=== PATIENT | male | born 1945 | race Caucasian/White ===

== ENCOUNTER 2025-02-07 10:11 | Outpatient (CLI) | payer MEDICARE, SELFPAY ==
--- OUTSIDE RECORDS SUMMARY | 2025-02-07 10:14 | XMS_ITS | Encounter Summary ---
Author Organization [facility] Address [address] [facility] [place] [address] Phone Care Team Providers Care Product Safety Technician Name Role Phone Ze Bolanos MD Primary Care Provider [phone] Jordan Michael MD Unavailable [phone] [place] APRN, ASSISTANT PRODUCER Primary Care Provider Reason for Visit * Reason Comments Medication Refill Encounter Details Date Type Department Care Team (Late st Contact Info) Description 04/20/2021 [facility] [address] [place] [address] Jordan Michael MD [address] [place] [address] Medication Refill Social History Tobacco Use Types Packs/Day Years Used Date Smoking Tobacco: Never Smokeless Tobacco: Former Chew Comments:Patient states he h as chewed tobacco for most of his life. Alcohol Use Standard Drinks/Week Comments Yes 0 (1 standard drink = 0.6 oz pur e alcohol) Daily Sex and Gender Information Value Date Recorded Sex Assigned at Not on file Legal Sex Male 10:25 PM CDT Gender Identity Not on file Sexual Orientation Not on file COVID-19 Exposure Response Date Recorded In the last month, have you been in contact with someone who was confirmed or suspected to have Coronavirus / COVID-19? No / Unsure 04/22/2021 8:04 AM CDT documented as of this encounter Miscellaneous Notes * Telephone Encounter - Deana Malik, RN - 04/22/2021 3:08 PM CDT R/f hydroxyurea. Next follow up 04/2021 documented in this encounter Plan of Treatment Upcoming Encounters Date Type Department Care Team (Late st Contact Info) Description 07/26/2025 10:40 AM FRONT OFFICE DEVELOPER Office Visit [facility] Oncology Services [address] [place] [id number] Jordan Michael MD [address] [place] [address] documented as of this encounter Visit Diagnoses Not on filedocumented in this encounter Care Teams Product Safety Technician Relationship Specialty Start Date End Date Ze Bolanos MD [address] [place] [address] PCP - General Internal Medicine 02/12/17 01/12/25 [employer] [place], BUSINESS MANAGEMENT ANALYST, ASSISTANT PRODUCER 2 [facility] [address] [place] [address] PCP - General Advanced Practice Nurse 01/13/25 Jordan Michael MD [address] [place], [place] [id number] Consulting Physician Medical Oncology 02/11/23 documented as of this encounter
--- OUTSIDE RECORDS SUMMARY | 2025-02-07 10:14 | XMS_ITS | Referral Summary ---
Author Organization [address] Address [address] [place] [id number] Care Team Providers Care Lap Checker Name Role Phone Ze Bolanos MD Primary Care Provider [phone] Allergies Active Allergy Reactions Criticality Noted Date Comments Penicillins Unknown 08/20/2020 Medications aspirin 81 mg enteric coated tablet Take 81 mg by mouth daily Active atorvastatin (LIPITOR) 40 mg tablet Take 40 mg by mouth daily Active fenofibrate (TRIGLIDE) 160 mg tablet 06/22/2020 Active opct5-vlk-vze-fi sh oil-L.casei 120 mg-400 mg -4 billion cell capsule Take by mouth Active hydroxyurea (HYDREA) 500 mg capsule Take by mouth daily Active losartan (COZAAR) 50 mg tablet Take 50 mg by mouth daily Active amLODIPine (NORVASC) 2.5 mg tablet Take 1 tablet (2.5 mg total) by mouth daily 30 tablet 08/03/2023 Active Active Problems Problem Noted Date Diagnosed Date Family history of colon cancer in mother 020 Overview (2020): Added automatically from request for surgery [id number] Personal history of colonic polyps 2020 Overview (2020): Added automatically from request for surgery [id number] Encounter for screening colonoscopy 2020 Overview (2020): Added automatically from request for surgery [id number] Social History Tobacco Use Types Packs/Day Years Used Date Smoking Tobacco: Some Days Cigarettes Smokeless Tobacco: Never Tobacco Cessation:Ready to Q uit: Not Asked; Counseling Given: Not Answered Alcohol Use Standard Drinks/Week Comments Yes 0 (1 standard drink = 0.6 oz pur e alcohol) AUDIT-C Answer Date Recorded Q1: How often do you have a drink containing alcohol? 4 or more times a week 08/03/2023 Q2: How many drinks containi ng alcohol do you have on a typical day when you are drinking? 3 or 4 Q3: How often do you have si x or more drinks on one occasion? Daily or almost daily 08/03/2023 Personal Safety Answer Date Recorded Have you ever been in or are you currently in a harmful physical or emotional relationship or is someone making you feel afraid or unsafe? Denies 08/03/2023 Sex and Gender Information Value Date Recorded Sex Assigned at Not on file Legal Sex Male 1:36 AM MACHINE SANDER Gender Identity Not on file Sexual Orientation Not on file Last Filed Vital Signs Vital Sign [place] Time Taken Comments Blood Pressure 137/81 08/03/2023 4:30 PM MACHINE SANDER Pulse 79 08/03/2023 3:45 PM MACHINE SANDER Temperature 36.4 C (97.6 F) 08/03/2023 1:48 PM MACHINE SANDER Respiratory Rate 18 08/03/2023 1:48 PM MACHINE SANDER Oxygen Saturation 98% 08/03/2023 3:45 PM MACHINE SANDER Inhaled Oxygen Concentration - - Weight 107.9 kg (237 lb 12.8 oz) 06/15/2021 2:34 PM MACHINE SANDER Height 179.5 cm (5' 10.67) 06/15/2021 2:[address] Body Mass Index 33.48 06/15/2021 2:34 PM MACHINE SANDER Plan of Treatment Not on file Procedures Procedure Name Priority Date/Time Associated Diagnosis Comments COLONOSCOPY 08/21/2020 8:52 AM MACHINE SANDER from Last 3 Months or Most Recently Relevant to Health Maintenance Results * COLONOSCOPY (08/21/2020 8:52 AM MACHINE SANDER) Anatomical Region Laterality Modality Other Narrative Procedure Note Chicho Celestin MD - 08/21/2020 8:52 AM CST [facility] Patient Name: Nehemias Brown Procedure Date: 08/21/2020 8:52 AM Date of : 1945 Admit Type: Outpatient Age: 75 Gender: Male Attending MD: Chicho Celestin M.D. Room: [facility] ENDOSCOPY ROOM 2 Note Status: Finalized Patient Profile: Refer to note in patient chart for documentation of history and physical. Procedure: Colonoscopy Indications: High risk colon cancer surveillance: Personalhistory of colonic polyps, Family history of colon cancerin a first-degree relative before age 60 years, Last colonoscopy: June 2015 Referring MD: Loren Bolanos M.D. Providers: Chicho Celestin M.D. Impression: - Diverticulosis in the sigmoid colon. - The examination was otherwise normal. - No specimens collected. Recommendation: - Discharge patient to home. - Resume previous diet. - Continue present medications. - Repeat colonoscopy in 5 years for surveillance. - Return to primary care physician as previously scheduled. Medicines: Propofol per Anesthesia Complications: No immediate complications. Estimated Blood Loss: Estimated blood loss: none. Procedure: Pre-Anesthesia Assessment: - This assessment was completed [Time ofAssessment] prior to the administration of sedation. The benefits, risks and alternatives of theprocedure and sedation were discussed and informed consentwas obtained. All questions were answered. Please referto the signed informed consent document in the medical record. Bowel prep was administered using a single dose. The bowel preparation used was Miralax via single dose instruction. The bowel preparation used was bisacodyl tablets [Single vs Split Dose]. The scope was passed under direct vision. TheColonoscope -[id number] was introduced through the anus and advanced to the the cecum, identified by appendiceal orifice and ileocecal valve. The colonoscopy was performed without difficulty. The patient tolerated the procedure well. The qualityof the bowel preparation was good. Findings: The perianal and digital rectal examinations were normal. Multiple small and large-mouthed diverticula were found in thesigmoid colon. The exam was otherwise without abnormality. Electronically signed by Chicho Celestin M.D. Chicho Celestin M.D. 08/21/2020 9:37:36 AM Number of Addenda: 0 Note Initiated On: 08/21/2020 8:52 AM Procedure Code(s): --- Professional --- G0105, Colorectal cancer screening; colonoscopy on individual at high risk Diagnosis Code(s): --- Professional --- K57.30, Diverticulosis of large intestine without perforation orabscess without bleeding Z80.0, Family history of malignant neoplasm of digestive organs Z86.010, Personal history of colonic polyps CPT copyright 2019 [employer]. All rights reserved. The codes documented in this report are preliminary and upon skin care consultant reviewmay be revised to meet current compliance requirements. Recognized by the [employer] for promoting quality in endoscopy us Chicho Celestin MD ENDOSCOPY PROCEDURES Final Re sult from Last 3 Months or Most Recently Relevant to Health Maintenance Insurance [facility] MEDICARE ADVANTAGE AET[employer] MEDICARE Advance Directives For more information, please contact: [phone] * Full Code (Latest Code Status on File) Date Activated Date Inactivated Comments 08/21/2020 8:41 AM 08/21/2020 2:24 PM Care Teams Lap Checker Relationship Specialty Start Date End Date Ze Bolanos MD [address] [place] [address] PCP - General Internal Medicine 08/03/23
--- OUTSIDE RECORDS SUMMARY | 2025-02-07 10:14 | XMS_ITS | Clinical Summary ---
Author Organization [address] Address [address] [place] [id number] Care Team Providers Care Wind Turbine Sheet Metal Worker Name Role Phone Ze Bolanos MD Primary Care Provider [phone] Allergies Active Allergy Reactions Criticality Noted Date Comments Penicillins Unknown 08/20/2020 Medications aspirin 81 mg enteric coated tablet Take 81 mg by mouth daily Active atorvastatin (LIPITOR) 40 mg tablet Take 40 mg by mouth daily Active fenofibrate (TRIGLIDE) 160 mg tablet 06/22/2020 Active lcul1-mwq-nmz-fi sh oil-L.casei 120 mg-400 mg -4 billion [...] (2020): Added automatically from request for surgery [id number] Personal history of colonic polyps 2020 Overview (2020): Added automatically from request for surgery [id number] Encounter for screening colonoscopy 2020 Overview (2020): Added automatically from request for surgery [id number] Surgical History Surgery Date Site/Laterality Comments KNEE ARTHROSCOPY 07/20/2001 - 07/19/2002 Left Arthroscopy knee COLONOSCOPY 06/19/2015 - 07/19/2015 Medical History Medical History Date Comments Hypertension Hypertension Hyperlipidemia Hyperlipidemia Colon polyp Family History Medical History Relation Name Comments Colon cancer Mother Cancer Other Family history of Cancer; Relation Name Status Comments Mother Other Social History Tobacco Use Types Packs/Day Years [...] on file Legal Sex Male 1:36 AM WINDSCREEN FITTER Gender Identity Not on file Sexual Orientation Not on file Obstetrics History Last Filed Vital Signs Vital Sign [place] Time Taken Comments Blood Pressure 137/81 08/03/2023 4:30 PM WINDSCREEN FITTER Pulse 79 08/03/2023 3:45 PM WINDSCREEN FITTER Temperature 36.4 C (97.6 F) 08/03/2023 1:48 PM WINDSCREEN FITTER Respiratory Rate 18 08/03/2023 1:48 PM WINDSCREEN FITTER Oxygen Saturation 98% 08/03/2023 3:45 PM WINDSCREEN FITTER Inhaled Oxygen Concentration - - Weight 107.9 kg (237 lb 12.8 oz) 06/15/2021 2:34 PM WINDSCREEN FITTER Height 179.5 cm (5' 10.67) 06/15/2021 2:[address] Body Mass Index 33.48 06/15/2021 2:34 PM WINDSCREEN FITTER Plan of Treatment Health Maintenance Due Date Last Done Comments Depression Screening 1945 Hepatitis C Screening 1945 Hepatitis B Screening 1964 Zoster Vaccine (1 of 2) 1965 Well Visit 65+ 2011 Pneumococcal vaccine 65+ (2 of 2 - PPSV23) 06/23/2016 04/28/2016 Fall Risk Assessment 08/21/2021 08/21/2020 Covid-19 Vaccine (2023-2 5 season) 2024 11/25/2021, 05/20/2021, 09/27/2020, Additional history exists DTaP/Tdap/Td Vaccine (2 - Td or Tdap) 07/20/2024 07/20/2014 Influenza Vaccine (Season Ended) 2025 04/08/2021, 04/08/2020, 04/03/2020, Additional history exists Colon Cancer Screening-Colonoscopy Discontinued 08/21/2020, 06/28/2015, 06/28/2015, Additional history exists Procedures Procedure Name Priority Date/Time Associated Diagnosis Comments COLONOSCOPY 08/21/2020 8:52 AM WINDSCREEN FITTER from Last 3 Months or Most Recently Relevant to Health Maintenance Results * COLONOSCOPY (08/21/2020 8:52 AM WINDSCREEN FITTER) Anatomical Region Laterality Modality Other Narrative Procedure Note Chicho Celestin MD - 08/21/2020 8:52 AM CST [facility] Patient Name: Nehemias Brown Procedure Date: 08/21/2020 8:52 AM Date of : 1945 Admit Type: Outpatient Age: 75 Gender: Male Attending MD: Chicho Celestin M.D. Room: [facility] ENDOSCOPY ROOM 2 Note Status: Finalized Patient [...] scope was passed under direct vision. TheColonoscope [id number] was introduced through the anus and advanced [...] history of colonic polyps CPT copyright 2019 [employer]. All rights reserved. The codes documented in this report are preliminary and upon youth accommodation support worker reviewmay be revised to meet current compliance requirements. Recognized by the [employer] for promoting quality in endoscopy Chicho Celestin MD ENDOSCOPY PROCEDURES Final Re sult from Last 3 Months or Most Recently Relevant to Health Maintenance Insurance [employer] MEDICARE ADVANTAGE AET[employer] MEDICARE Advance Directives For more information, please contact: [phone] * Full Code (Latest Code Status on File) Date Activated Date Inactivated Comments 08/21/2020 8:41 AM 08/21/2020 2:24 PM Care Teams Wind Turbine Sheet Metal Worker Relationship Specialty Start Date End Date Ze Bolanos MD [address] [place] [address] PCP - General Internal Medicine 08/03/23
--- OUTSIDE RECORDS SUMMARY | 2025-02-07 10:14 | XMS_ITS | Encounter Summary ---
Author Organization [facility] Address [address] [facility] [place] [address] Phone Care Team Providers Care Hydrogenation Still Operator Name Role Phone Ze Bolanos MD Primary Care Provider [phone] Jordan Michael MD Unavailable [phone] [place] APRN, NUT ROASTER Primary Care Provider Reason for Visit * Reason Comments Medication Refill Encounter Details Date Type Department Care Team (Late st Contact Info) Description 10/22[facility] [address] [place] [address] Jordan Michael MD [address] [place] [address] Medication Refill Social History Tobacco [...] on file Sexual Orientation Not on file documented as of this encounter Miscellaneous Notes * Telephone Encounter - Lizbeth Lyn RN - 10/23/2020 2:21 PM CDT Refilled Hydroxyurea next f/u 04/2021 documented in this encounter Plan of Treatment Upcoming Encounters Date Type Department Care Team (Late st Contact Info) Description 07/26/2025 10:40 AM SKEIN WASHER Office Visit [facility] Oncology Services [address] [place] [address] Jordan Michael MD [address] [place] [address] documented as of this encounter Visit Diagnoses Not on filedocumented in this encounter Care Teams Hydrogenation Still Operator Relationship Specialty Start Date End Date Ze Bolanos MD [address] [place], [place] [id number] PCP - General Internal Medicine 02/12/17 01/12/25 Tsering [place], RUG UNDERLAY MACHINE OPERATOR, NUT ROASTER 2 [facility], [address] [address] PCP - General Advanced Practice Nurse 01/13/25 [place] [address] [place] [address] Consulting Physician Medical Oncology 02/11/23 documented as of this encounter"
--- OUTSIDE RECORDS SUMMARY | 2025-02-07 10:14 | XMS_ITS | Clinical Summary ---
Author Organization [facility] Address [address] [place] [address] Phone Care Team Providers Care Agricultural Research Technologist Name Role Phone Jordan Michael MD Unavailable [phone] [place] APRN, PARTNER MANAGEMENT CONSULTANT Primary Care Provider Allergies Active Allergy Reactions Criticality Noted Date Comments Penicillins Hives,Itching 02/16/2017 Medications fish oil-omega-3 fatty acids 1000 MG Capsule Take 1,000 mg by mouth daily. Active aspirin EC 81 MG Tablet Delayed Response Take 81 mg by mouth daily. Active losartan (COZAAR) 50 MG Tablet Active Cyanocobalamin (VITAMIN B-12 PO) Take by mouth daily. Active rosuvastatin (CRESTOR) 20 MG Tablet 2 Active amLODIPine (NORVASC) 5 MG Tablet Take 5 mg by mouth daily. Active hydroxyurea (HYDREA) 500 MG Capsule Take 2 Capsules by mouth daily 180 Capsule 2 5 Active Fenofibrate Micronized 134 MG Capsule Take 134 mg by mouth daily. 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 (Primary Dx); Essential thrombocytosis; Hypertension, essential Discharge Disposition: Discharged to home or Selfcare 01/23/2025 Travel 01/13/2025 Travel 12/13/2024 [facility]phone [facility] [address] [place] [address] Jordan Michael MD from Last 3 Months Family History Medical History Relation Name Comments Aneurysm Father Cancer Father Prostate Cancer Cancer Mother Colon cancer Relation Name Status Comments Father Mother Social History Tobacco Use Types Packs/Day Years Used Date Smoking Tobacco: Never Smokeless Tobacco: Former Chew Tobacco Cessation:Counseling Given: Not Answered Comments:Patient states he has chewed tobacco for most of his life. [...] Sign Reading Time Taken Comments Blood Pressure 121/72 01/23/2025 11:37 AM CDT Pulse 94 01/23/2025 11:37 AM CDT Temperature 36.3 C (97.4 F) 01/23/2025 11:37 AM CDT Respiratory Rate 16 01/23/2025 11:37 AM CDT Oxygen Saturation 99% 01/23/2025 11:37 AM CDT Inhaled Oxygen Concentration - - Weight 107 kg (235 lb 14.4 oz) 01/23/2025 11:37 AM CDT Height 182.9 cm (6') 01/23/2025 11:37 AM CDT Body Mass Index 31.99 01/23/2025 11:37 AM CDT Plan of Treatment Upcoming Encounters Date Type Department Care Team (Late st Contact Info) Description 07/26/2025 10:40 AM ENTRY LEVEL AUTOMOTIVE TECHNICIAN Office Visit [facility] [address] [place] [address] Jordan Michael MD [address] [place] [address] Health Maintenance Due Date Last Done Comments Hepatitis C Virus (HCV) Screening 1945 Pneumococcal Immunization (50+ years) (2 of 2 - PPSV23) 06/23/2016 04/28/2016 SARS-COV-2 Immunization (9 - Moderna risk season) 2024 05/10/2024, 08/25/2023, 10/16/2022, Additional history exists Influenza Immunization (#1) 03/20/202504/20, 04/01/2023, 04/29/2022, Additional history exists DTaP/Tdap/Td Immunization Discontinued 07/20/2014 TdaP Immunization Completed 07/20/2014 Pneumococcal Immunization Combined Discontinued 04/28/2016 Colonoscopy Discontinued 08/21/2020, 02/0 08/2020, 08/20/2020 Colorectal Cancer Screening Discontinued Zoster Immunization Completed 06/17/2022, Respiratory Syncytial Virus (RSV) Immunization (Adult) Completed 04/01/2023 Cologuard Discontinued Hepatitis B Immunization Aged Out No longer eligible based on patient's age to complete this topic Human Papillomavirus (HPV) Immunization Aged Out No longer eligible based on patient's age to complete this topic Immunochemical Fecal Occult Blood Discontinued Meningococcal Immunization (ACWY) Aged Out No longer eligible based on patient's age to complete this topic Rotavirus Immunization Aged Out No lo nger eligible based on patient's age to complete this topic Procedures Procedure Name Priority Date/Time Associated Diagnosis Comments CBC WITH AUTO DIFFERENTIAL Routine 01/13/2025 11:11 AM CDT 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 IRON,TRANSFERN,CALC.T IBC,%SAT Routine 01/13/2025 11:11 AM CDT 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 COMPLETE BLOOD COUNT (CBC) WITH DIFF Routine 01/13/2025 11:11 AM CDT 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 FERRITIN Routine 01/13/2025 11:11 AM CDT 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 CMP (COMPREHENSIVE METABOLIC PANEL) Routine 01/13/2025 11:11 AM CDT 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 from Last 3 Months Results * IRON,TRANSFERN,CALC.TIBC,%SAT (01/13/2025 11:11 AM CDT) Pathologist [facility] IRON 100 31 - 144 mcg/dL 01/13/2025 12:27 PM CDT [facility] TRANSFERRIN 262 163 - 344 mg/dL 01/13/2025 12:27 PM CDT [facility] TIBC, CALCULATED 328 261 - 462 mcg/dL 01/13/2025 12:27 PM CDT [facility] % SATURATION * 30 15 - 62 % 01/13/2025 12:27 PM CDT [facility] Blood Venipuncture / Unknown 01/13/2025 11:11 AM CDT 01/13/2025 12:04 PM CDT Jordan Michael MD CHEMISTRY ORDERABLES Fin al Result [facility] [address] [place] [address] * (ABNORMAL) CBC WITH AUTO DIFFERENTIAL (01/13/2025 11:11 AM CDT) WBC 4.89 4.00 - 12.00 10(3)/mcL 01/13/2025 2:47 PM CDT [facility] RBC 3.64(L) 4.40 - 5.80 10(6)/mcL 01/13/2025 2:47 PM CDT [facility] HEMOGLOBIN (HGB) 13.4 13.0 - 16.5 g/dL 01/13/2025 2:47 PM CDT [facility] HEMATOCRIT (HCT) 39.4 38.0 - 50.0 % 01/13/2025 2:47 PM CDT [facility] MCV 108.2(H) 82.0 - 96.0 fL 01/13/2025 2:47 PM CDT [facility] MCH 36.8(H) 26.0 - 32.0 pg 01/13/2025 2:47 PM CDT [facility] MCHC 34.0 31.0 - 36.0 g/dL 01/13/2025 2:47 PM CDT [facility] PLATELET COUNT 457(H) 140 - 440 10(3)/mcL 01/13/2025 2:47 PM CDT [facility] RDW 15.9(H) 11.8 - 15.5 % 01/13/2025 2:47 PM CDT [facility] MPV 10.2 8.0 - 12.6 fL 01/13/2025 2:47 PM CDT [facility] NEUTROPHILS 70.9(H) 40.0 - 68.0 % 01/13/2025 2:47 PM CDT [facility] LYMPHOCYTES 15.1(L) 19.0 - 49.0 % 01/13/2025 2:47 PM CDT [facility] MONOCYTES 10.2 3.0 - 13.0 % 01/13/2025 2:47 PM CDT [facility] EOSINOPHILS 2.0 0.0 - 8.0 % 01/13/2025 2:47 PM CDT [facility] BASOPHILS 1.2(H) 0.0 - 1.0 % 01/13/2025 2:47 PM CDT [facility] IMMATURE GRANULOCYTE 0.6(H) 0.0 - 0.4 % 01/13/2025 2:47 PM CDT [facility] Comment:Immature Granulocyte s includes Metamyelocytes, Myelocytes, and Promyelocytes. ABSOLUTE NEUTROPHILS 3.46 1.40 - 5.30 10(3)/[facility] 01/13/2025 2:47 PM CDT [facility] ABSOLUTE LYMPHOCYTES 0.74(L) 0.90 - 3.30 10(3)/[facility] 01/13/2025 2:47 PM CDT [facility] ABSOLUTE MONOCYTES 0.50 0.10 - 0.90 10(3)/[facility] 01/13/2025 2:47 PM CDT [facility] ABSOLUTE EOSINOPHIL 0.10 0.00 - 0.50 10(3)/[facility] 01/13/2025 2:47 PM CDT [facility] ABSOLUTE BASOPHILS 0.06 0.00 - 0.10 10(3)/[facility] 01/13/2025 2:47 PM CDT [facility] ABSOLUTE IMMATURE GRANULOCYTE 0.03 0.00 - 0.03 10 (3) [facility]. 01/13/2025 2:47 PM CDT [facility] NRBC PER 100 WBC 0 01/14/20 2:47 PM CDT [facility] RESULTS ARE CONSISTENT WITH PERIPHERAL SMEAR REVIEW Yes 01/13/2025 2:47 PM CDT [facility] RBC MORPHOLOGY CONSISTENT WITH INDICES Yes 01/13/2025 2:47 PM CDT [facility] POLYCHROMASIA 1+ 01/13/2025 2:47 PM CDT [facility] HYPERSEGMENTED NEUTROPHILS 1+ 01/13/2025 2:47 PM CDT [facility] GIANT PLATELETS 1+ 2:47 PM CDT [facility] LARGE PLATELETS 1+ 2:47 PM CDT [facility] Blood Venipuncture / Unknown 01/13/2025 11:11 AM CDT 01/13/2025 12:04 PM CDT Narrative [facility] - 01/13/2025 2:47 PM CDT Anisocytosis Macrocytosis Jordan Michael MD HEMATOLOGY ORDERABLES Fi nal Result [facility] [address] [place] [address] * FERRITIN (01/13/2025 11:11 AM CDT) FERRITIN 254 22 - 274 ng/mL 01/13/2025 12:45 PM CDT [facility] Blood Venipuncture / Unknown 01/13/2025 11:11 AM CDT 01/13/2025 12:04 PM CDT Jordan Michael MD CHEMISTRY ORDERABLES Fin al Result Performing Organization Address [facility]/ZIP Co de Phone Number [facility] [address] [place] [address] * (ABNORMAL) CMP (COMPREHENSIVE METABOLIC PANEL) (01/13/2025 11:11 AM CDT) SODIUM 135(L) 136 - 145 mmol/L 01/13/2025 12:27 PM CDT [facility] POTASSIUM 4.6 3.5 - 5.1 mmol/L 01/13/2025 12:27 PM CDT [facility] CHLORIDE 103 98 - 107 mmol/L 01/13/2025 12:27 PM CDT [facility] CO2, VENOUS 21(L) 22 - 30 mmol/L 01/13/2025 12:27 PM CDT [facility] ANION GAP 15.6 <18.0 mmol/L 01/13/2025 12:27 PM CDT [facility] GLUCOSE 90 70 - 99 mg/dL 01/13/2025 12:27 PM CDT [facility] BUN 19 8 - 26 mg/dL 01/13/2025 12:27 PM CDT [facility] CREATININE, BLOOD 1.32(H) 0.70 - 1.30 mg/dL 01/13/2025 12:27 PM [facility] BUN/CREATININE RATIO 14 12 - 20 ratio 01/13/2025 12:27 PM [facility] TOTAL PROTEIN 7.4 6.0 - 8.0 g/dL 01/13/2025 12:27 PM [facility] ALBUMIN 4.4 3.5 - 5.0 g/dL 01/13/2025 12:27 PM [facility] A/G RATIO 1.5 1.0 - 2.2 01/13/2025 12:27 PM [facility] CALCIUM 9.4 8.7 - 10.5 mg/dL 01/13/2025 12:27 PM [facility] T BILI 0.8 0.2 - 1.2 mg/dL 01/13/2025 12:27 PM [facility] SGOT (AST) 35 <43 U/L 01/13/2025 12:27 PM [facility] SGPT (ALT) 38 <56 U/L 01/13/2025 12:27 PM [facility] ALKALINE PHOSPHATASE 51 40 - 150 U/L 01/13/2025 12:27 PM [facility] IS THE PATIENT REQUIRED TO BE FASTING? No 01/13/2025 12:27 PM [facility] GFR, ESTIMATED 55(L) >=60 01/13/2025 12:27 PM [facility] Comment: Creatinine Clearance is the preferred criteria for selecting drug dose adjustments in renally impaired patients. The GFR is provided as additional pertinent clinical information. GFR is reported in mL/min/1.73 sq m. Calculation based on the Chronic Kidney Disease Epidemiology Collaboration (CKD- EPI) equation refit without adjustment for race. GFR, EST. >60 >=60 025 12:27 PM [facility] GFR, EST. NONAFRICAN 52(L) >=60 01/13/2025 12:27 PM [facility] Blood Venipuncture / Unknown 01/13/2025 11:11 AM CDT 01/13/2025 12:04 PM CDT Jordan Michael MD CHEMISTRY ORDERABLES Fin al Result [facility] [address] [place] [address] from Last 3 Months Insurance MEDICARE C [employer] Care Teams Agricultural Research Technologist Relationship Specialty Start Date End Date [place], [employer], PARTNER MANAGEMENT CONSULTANT [address], [address] [place] [address] PCP - General Advanced Practice Nurse 01/13/25 Jordan Michael MD [address] [place] [address] Consulting Physician Medical Oncology 02/11/23
--- OUTSIDE RECORDS SUMMARY | 2025-02-07 10:14 | XMS_ITS | Encounter Summary ---
Author Organization [facility] Address [address] [facility] [place] [address] Phone Care Team Providers Care Microstrategy Developer Name Role Phone Ze Bolanos MD Primary Care Provider [phone] Jordan Michael MD Unavailable [phone] [place] APRN, CUSTOMS VERIFIER Primary Care Provider Reason for Visit * Reason Comments Medication Refill Encounter Details Date Type Department Care Team (Late st Contact Info) Description [facility]/22/20[facility] [address] [place] [address] Jordan Michael MD [address] [place] [address] Medication Refill Social History Tobacco [...] encounter Miscellaneous Notes * Telephone Encounter - Bette Madera RN - 06/23/2022 12:22 PM CST Approved Hydrea refill per last f/u note with adjusted sig. DYER HELPER * Telephone Encounter - Verito Ruiz RN - 06/23/2022 10:17 AM CST Would you like hydroxyurea refilled? He doesn't follow up with you until August 08 DYER HELPER documented in this encounter Plan of Treatment Upcoming Encounters Date Type Department Care Team (Late st Contact Info) Description 07/26/2025 10:40 AM RUG DYER HELPER Office Visit [facility] [address] [place] [phone] Jordan Michael MD [address] [place] [address] documented as of this encounter Visit Diagnoses Not on filedocumented in this encounter Care Teams Microstrategy Developer Relationship Specialty Start Date End Date Ze Bolanos MD [address] [place] [address] PCP - General Internal Medicine 02/12/17 01/12/25 [place], CERTIFIED TRAVEL COUNSELOR, CUSTOMS VERIFIER [address] [facility], [address] [place] [address] PCP - General Advanced Practice Nurse 01/13/25 Jordan Michael MD [address] [place], [place] [phone] Consulting Physician Medical Oncology 02/11/23 documented as of this encounter
--- OUTSIDE RECORDS SUMMARY | 2025-02-07 10:14 | XMS_ITS | Clinical Summary ---
Author Organization [facility] Address [facility] [facility] [place] [address] Care Team Providers Care Data Support Analyst Name Role Phone Galo Valencia MD Unavailable [phone] Source Comments [facility],non-[facility] Affiliates and Associated Physician Practices is amultiple site organization consisting of ambulatory clinics and hospital sitesin [place], [place], [place] and [place]. This disclosure is being madepursuant to the Care Everywhere program and may not contain all information available regarding this patient. Last updated 18.[facility] [employer] Allergies Active Allergy Reactions Criticality Noted Date Comments Penicillins 12/03/2015 As a child does not know reaction Medications * Be aware that medications may not be up to date on this document. Alwaysverify current medications with the patient. atorvastatin (LIPITOR) 40 MG tablet Take 40 mg by mouth once daily Active folic acid (FOLVITE) 1 MG tablet Take 1 mg by mouth once daily Active fenofibrate (LOFIBRA) 160 MG tablet Take 160 mg by mouth once daily 7 Active valsartan (DIOVAN) 80 MG tablet Take 80 mg by mouth once daily 7 Active clindamycin (CLEOCIN) 300 MG capsule TAKE 2 CAPSULES BY MOUTH 1 TIME 1 HOUR BEFORE DENTAL APPOINTMENT FOR 1 DOSE 6 capsule 8 Active Active Problems Problem Noted Date Diagnosed Date Hamstring tendonitis 08/22/2016 Primary osteoarthritis of right knee 12/03/2015 Hyperlipidemia 01/01/2013 Essential hypertension 01/01/2013 Social History Tobacco Use Types Packs/Day Years Used Date Smoking Tobacco: Never Smokeless Tobacco: Never Alcohol Use Standard Drinks/Week Comments Yes 12 (1 standard drink = 0.6 oz pu re alcohol) occ Sex and Gender Information Value Date Recorded Sex Assigned at Not on file Legal Sex Male 4:34 PM CDT Gender Identity Not on file Sexual Orientation Not on file Last Filed Vital Signs Vital Sign Reading Time Taken Comments Blood Pressure 122/69 07/02/2017 8:17 AM COMPUTER ENGINEERING PROFESSOR Pulse 95 07/02/2017 8:17 AM COMPUTER ENGINEERING PROFESSOR Temperature 36.5 C (97.7 F) 07/02/2017 8:17 AM COMPUTER ENGINEERING PROFESSOR Respiratory Rate 18 07/02/2017 8:17 AM COMPUTER ENGINEERING PROFESSOR Oxygen Saturation 96% 07/02/2017 8:17 AM COMPUTER ENGINEERING PROFESSOR Inhaled Oxygen Concentration - - Weight 101.4 kg (223 lb 8 oz) 06/30/2017 7:23 AM COMPUTER ENGINEERING PROFESSOR Height 182.9 cm (6') 06/30/2017 7:23 AM COMPUTER ENGINEERING PROFESSOR Body Mass Index 30.31 06/30/2017 7:23 AM COMPUTER ENGINEERING PROFESSOR Plan of Treatment Health Maintenance Due Date Last Done Comments HEPATITIS C SCREENING 07/12/1963 DTAP/TDAP/TD VACCINES (1 - Tdap) 1965 PNEUMOCOCCAL VACCINE 50+ (1 of 1 - PCV) 1996 ZOSTER VACCINE (1 of 2) 1996 SCREENING FOR DIABETES 02/06/2017 Respiratory Syncytial Virus (RSV) Vaccine Pt: or over 60 yrs (1 - 1-dose 75+ series) 2021 COVID-19 VACCINE (1 - 2023-2 5 season) 2024 DEPRESSION SCREENING 07/20/2024 INFLUENZA VACCINE (#1) 2025 05/10/2015 HEPATITIS B VACCINE Aged Out No longe r eligible based on patient's age to complete this topic HIB VACCINE Aged Out No longer eligi ble based on patient's age to complete this topic HPV VACCINE Aged Out No longer eligi ble based on patient's age to complete this topic MENINGOCOCCAL (Group B) VACC INE SHARED DECISION-MAKING Aged Out No longer eligibl e based on patient's age to complete this topic MENINGOCOCCAL GROUPS A/C/Y/W VACCINE Aged Out No longer eligible b ased on patient's age to complete this topic Medical Devices Implanted Type Area Data Sciences Director Device Identifier Shelf Expiration Date Model / Serial / Lot Cmnt Bone Co Hv 40gm Implanted:Qty: 1 on 05/26/2016 by Galo Valencia MD at [facility] Right: Knee [employer] [id number] 09/16/2017 [id number] / / [id number] Tray Tib 79mm Kn Cocr I Beam Implanted:Qty: 1 on 05/26/2016 by Galo Valencia MD at [facility] Right: Knee [employer] [id number] 03/02/2026 [id number] / / [id number] Cmpnt Fem Kn Rt Cr Cmnt Prm Vngrd Intlk Implanted:Qty: 1 on 05/26/2016 by Galo Valencia MD at [facility] Right: Knee [employer] [id number] 07/27/2025 [id number] / / [id number] Cmpnt Ptlr 31mm 1 Pg Wire Ascnt Arcm Kn Implanted:Qty: 1 on 05/26/2016 by Galo Valencia MD at [facility] Right: Knee [employer] [id number] 04/06/2021 [id number] / / [id number] Brng [id number] Vngrd Arcm Kn Ant Stab Implanted:Qty: 1 on 05/26/2016 by Galo Valencia MD at [facility] Right: Knee [employer] 12/24/2020 [id number] / / [id number] Brng 40udt96os Vngrd Arcm Kn Ant Stab Implanted:Qty: 1 on 06/30/2017 by Galo Valencia MD at [facility] Left: Knee [employer] 06/05/2022 [id number] / / [id number] Cmnt Bone Cblt 40gm Hvisc Strl Implanted:Qty: 1 on 06/30/2017 by Galo Valencia MD at [facility] Left: Knee [employer] 01/16/2019 [id number] / / [id number] Cmpnt Fem Kn Lt Cr Cmnt Prm Vngrd Intlk Implanted:Qty: 1 on 06/30/2017 by Galo Valencia MD at [facility] Left: Knee [employer] 06/02/2027 [id number] / / [id number] Tray Tib 79mm Kn Cocr I Beam Implanted:Qty: 1 on 06/30/2017 by Galo Valencia MD at [facility] Left: Knee [employer] 05/21/2027 [id number] / / [id number] Cmpnt Ptlr 31mm 1 Pg Wire Ascnt Arcm Kn Implanted:Qty: 1 on 06/30/2017 by Galo Valencia MD at [facility] Left: Knee [employer] 04/23/2022 [id number] / / [id number] Insurance UHC MANAGED MEDICARE ADV [facility] [place] [place] Advance Directives Documents on File Type Date Recorded Patient Joy Operator Helper Expl anation Adv Directive/Living Will/POA 07/03/2017 4:53 PM * Full Code (Latest Code Status on File) Date Activated Date Inactivated Comments 06/30/2017 12:05 PM 07/02/2017 2:28 PM * Full Code Date Activated Date Inactivated Comments 05/26/2016 10:55 AM 05/28/2016 1:33 PM Care Teams Data Support Analyst Relationship Specialty [place] [id number] [address] [place] [id number] Orthopedic Surgery 12/03/15
== END 2025-02-07 10:12 | disposition home or self-care (01) ==
LOC: ANHBWCAUD 10:11
PROVIDERS: Visit Provider Otolaryngology
DX: H93.90 Unspecified disorder of ear, unspecified ear (principal); R43.8 Other disturbances of smell and taste; H90.3 Sensorineural hearing loss, bilateral
CPT/HCPCS: 92557; 92567

== ENCOUNTER 2025-03-21 09:00 | Outpatient (RCR) | payer MEDICARE, SELFPAY | END 2025-05-15 23:59 | disposition home or self-care (01) | LOC: ANHBWCAUD 09:00 | PROVIDERS: PCP Nurse Practitioner Family; Visit Provider Otolaryngology | DX: Z46.1 Encounter for fitting and adjustment of hearing aid (principal) | CPT/HCPCS: 99199; V5261 ==